=== PATIENT | female | born 1945 | race Hispanic/Latino ===

== ENCOUNTER 2016-10-07 06:19 | Day surgery (SDC) | payer MEDICARE ==
[2016-10-07 06:35] VITALS: BMI 35.9
[2016-10-07] MEDS ORDERED: Midazolam 2 MG/2 ML VIAL ONE (07:48)
[2016-10-07] MEDS ORDERED: Propofol 10 mg/ml Inj (20 ML) ONE (07:49)
[2016-10-07] MEDS ORDERED: Lactated Ringer's 1,000 ML IV ONE (08:20)
--- NOTE | 2016-10-07 09:15 | PCM.SURG1 ---
Surgeon's Initial Post Op Note - Surgeon's Notes Surgeon: Jennifer Chaney MD [place] Supervisor: None Type of Anesthesia: General Endo Pre-Operative Diagnosis: post menopausal bleeding Operative Findings: 8-10 weeks uteurs, bilateral ostia visluzed, thickened white endometrium, no masses. urine output 30 clear yellow urine. no ocmpliations Post-Operative Diagnosis: same as preop Operation Performed: Operative hysteroscopy, fractional dilation and currettage Specimen/Specimens Removed: endocervical currettage, endometrial currettage Estimated Blood Loss: EBL {In ML}: 5 Drains Used: No Drains Date of Surgery/Procedure: 10/07/16 Time of Surgery/Procedure: 09:00
[2016-10-07] MEDS ORDERED: HYDROmorphone 0.5 mg/0.5 ml ISec IVP PRN (09:16)
[2016-10-07] MEDS ORDERED: Rocuronium 10 mg/ml (5 ml) ONE (09:19)
[2016-10-07] MEDS ORDERED: Albuterol 0.083% Inhal Sol (2.5 mg/3 mL) UD ONE (09:23)
[2016-10-07] MEDS ORDERED: Albuterol 0.083% Inhal Sol (2.5 mg/3 mL) UD INH STA (09:24)
[2016-10-07] MEDS ORDERED: Lactated Ringer's 1,000 ML IV SCH (09:30)
[2016-10-07 11:12] VITALS: O2SAT 96
[2016-10-07 11:34] VITALS: BP 127/57; PULSE 76; RESP 20; TEMP 97.8
--- NOTE | 2016-10-20 23:29 | PCM.OP ---
Operative Report - Operative Report Date of Surgery/Procedure: 10/07/16 Time of Surgery/Procedure: 08:00 Surgeon: Jennifer Chaney MD Anatomic Pathology Assistant: none Anesthesia/Sedation: General LMA Pre-Operative Diagnosis: Postmenopausal bleeding Post-Operative Diagnosis: same as pre operative diagnosis Indication for Surgery: Post menopausal bleeding Operative Findings: Patient was taken to the operating room where she was given general anesthesia. Once anesthesia was obtained without difficulty , the patient was positioned on the operating table in the doral supine position with the legs supported using stirrups. The patient was then prepped and draped in the usual normal sterile fashion. Timeout was performed to confirm correct patient and correct procedure. Lacy retractos were placed in both anterior and posterior fornix of vaginal and cervix was adequately visualized. Single tooth tenaculum was placed on anterior lilp of cervix.. Endo cervical currettings were obtained with a a currette and sent ot pathlogy on tel. The uterus was then sounded to 8 cm, and the cervix was sequentially dilated carefully to allow for hysteroscope to be entreed under direct visualization using normal_ saline as distnesion media. Upon visualization bilateral ostial visualized and there was a white thickening in between and throughout the cavity. Hysteroscope was removed. The endometrial currettage was obtained with a curette and sent to pathology on [facility]. All instruments were removed, good hemostasis was noted. At the end of the procedure, all needle sponge and instrument counts wewre noted to b correct x 2. patient was able to tolerate the procedure, and was transferred to the recovery in stable conditions. Procedure/Operation Description: Operative hysteoscopy, fractional dilation and currettage Estimated Blood Loss: 5 ml Complications: none Discharge & Condition: stable
== END 2016-10-07 11:34 | disposition home or self-care (01) ==
LOC: C.SDS 06:19
PROVIDERS: ATTEND Obstetrics & Gynecology
DX: N95.0 Postmenopausal bleeding (principal)
CPT/HCPCS: 58558; 82948; 88305; J2250; J2704; J3010; J7120